=== PATIENT | male | born 1980 | race Caucasian/White ===

== ENCOUNTER 2018-02-27 19:35 | Emergency (ER) | payer SELFPAY ==
[~2018-02-27 19:35] MED LIST: MOTRIN600 MG PO; ULTRAM50 MG PO; VALIUM5 MG PO; ZESTORETIC,P1 TABLE1 PO
== END 2018-02-27 20:25 | disposition left against medical advice (07) ==
LOC: EME 19:35
DX: R10.9 Unspecified abdominal pain (principal); R11.10 Vomiting, unspecified; Z53.21 Procedure and treatment not carried out due to patient leaving prior to being seen by health care provider
CPT/HCPCS: 80053; 81003; 83690; 85027